=== PATIENT | female | born 1985 | race Caucasian/White ===

== ENCOUNTER 2022-05-17 10:56 | Outpatient (CLI) | payer OTHER, SELFPAY ==
[2022-05-17 12:20] LABS: Alanine Aminotransferase 22 U/L (6-35); Aspartate Amino Transferase 23 U/L (14-36)
== END 2022-05-17 10:57 | disposition home or self-care (01) ==
PROVIDERS: PCP Podiatrist Foot & Ankle Surgery; Visit Provider Podiatrist Foot & Ankle Surgery
DX: B35.1 Tinea unguium (principal)
CPT/HCPCS: 36415; 84450; 84460